=== PATIENT | female | born 1985 | race Caucasian/White ===

== ENCOUNTER 2024-11-18 13:38 | Inpatient (IN) | payer OTHER ==
[2024-11-18 13:34] VITALS: BP 142/80
[~2024-11-18 13:38] MED LIST: CALCIUM CARBONATE 500 MG CHEW PO PRN; IBUPROFEN800 MG PO; MAGNESIUM HYDROXIDE/AL HYDROX 30 ML CUP PO PRN; NON-ASPIRIN EX500 M1 PO; ONDANSETRON ODT8 MG SL; OXYCODONE HCL5 MG PO; PENICILLIN G POTASSIUM 5 MUNITS/110 ML PIGGYBACK IV ONE
[2024-11-18 13:40] LABS: HEMATOCRIT 39.4 % (35.0-50.0); MCH 30.1 (27-36); MCHC 32.9 g/dl (30-36); MCV 91.6 fl (81-99); RBC 4.3 M/ul (4.3-5.7); RDW 14.4 (10.5-15.0)
[2024-11-18] MEDS ORDERED: ROPIVACAINE 0.2% 200 ML BAG ONE (13:56)
[2024-11-18] MEDS ORDERED: fentaNYL citrate 100 MCG/2 ML VIAL ONE (13:56)
[2024-11-18 14:04] LABS: AMPHETAMINES, URINE NEGATIVE (NEGATIVE); BARBITURATES, URINE NEGATIVE (NEGATIVE); BENZODIAZEPINE, URINE NEGATIVE (NEGATIVE); BUPRENORPHINE, URINE NEGATIVE (NEGATIVE); CANNABINOID, URINE NEGATIVE (NEGATIVE); COCAINE, URINE NEGATIVE (NEGATIVE); ECSTASY, URINE NEGATIVE (NEGATIVE); FENTANYL, URINE NEGATIVE (NEGATIVE); METHADONE, URINE NEGATIVE (NEGATIVE); OPIATES, URINE NEGATIVE (NEGATIVE); OXYCODONE, URINE NEGATIVE (NEGATIVE); PHENCYCLIDINE, URINE NEGATIVE (NEGATIVE)
[2024-11-18 14:10] LABS: CREATININE, RANDOM URINE 70.87 mg/dL (NOT ESTABLISHED); PROTEIN/CREATININE RATIO 0.21 mg/mg (0.010-0.107)
[2024-11-18] MEDS ORDERED: LACTATED RINGER'S 1,000 ML IV SCH (14:15)
[2024-11-18 14:25] LABS: ABO O; RH POSITIVE
[2024-11-18 14:26] LABS: ANTIBODY SCREEN NEGATIVE
[2024-11-18] MEDS ORDERED: LACTATED RINGER'S 500 ML IV PRN (14:30)
[2024-11-18] MEDS ORDERED: LACTATED RINGER'S 2,000 ML IV ONE (14:30)
[2024-11-18] MEDS ORDERED: ROPIVACAINE 0.2% 200 ML BAG EPIDURAL SCH (14:30)
[2024-11-18] MEDS ORDERED: ePHEDrine sulfate 5 MG/ML SYRINGE IV PRN (14:30)
[2024-11-18 14:34] LABS: ALBUMIN 2.4 g/dL (3.4-5.0); ALBUMIN/GLOBULIN RATIO 0.67 (1.1-2.4); ANION GAP 16.7 (7-21); BILIRUBIN, TOTAL 0.6 ng/dL (0.2-1.0); BUN/CREATININE RATIO 8.95 (6.0-28.6); CALCIUM 8.5 mg/dL (8.5-10.1); CREATININE, SERUM 0.67 mg/dL (0.55-1.02); POTASSIUM 3.7 mmol/L (3.5-5.1)
[2024-11-18] MEDS ORDERED: PENICILLIN G POTASSIUM 5 MUNITS/110 ML PIGGYBACK IV ONE ×2 (17:00→17:15)
[2024-11-18] MEDS ORDERED: PENICILLIN G POTASSIUM 2.5 MUNITS in DEXTROSE 5% 100 ML IV ONE (17:30)
[2024-11-18] MEDS ORDERED: OXYTOCIN/DEXTROSE 5% 20 UNITS/100 ML BAG IV SCH (17:45)
[2024-11-18] MEDS ORDERED: IBUPROFEN 600 MG TAB PO PRN (18:00)
[2024-11-18] MEDS ORDERED: OXYTOCIN/0.9 % SODIUM CHLORIDE 500 ML IV SCH (18:00)
[2024-11-18] MEDS ORDERED: ACETAMINOPHEN 325 MG TAB PO PRN (18:00)
[2024-11-18] MEDS ORDERED: WITCH HAZEL/GLYCERIN 1 EA PAD TOP PRN (18:00)
[2024-11-18] MEDS ORDERED: CALCIUM CARBONATE 500 MG CHEW PO PRN (18:00)
[2024-11-18] MEDS ORDERED: MAGNESIUM HYDROXIDE 30 ML UDC PO PRN (18:00)
[2024-11-18] MEDS ORDERED: LIDOCAINE 2% VISCOUS 6 ML SYR TOP ONE ×2 (18:00)
[2024-11-18] MEDS ORDERED: BENZOCAINE 60 ML AEROSOL TOP PRN (18:00)
[2024-11-18] MEDS ORDERED: MAGNESIUM HYDROXIDE/AL HYDROX 30 ML CUP PO PRN (18:00)
[2024-11-18] MEDS ORDERED: HYDROCORTISONE ACETATE 25 MG SUPP PR PRN (18:00)
[2024-11-18] MEDS ORDERED: SENNOSIDES/DOCUSATE 1 EA TAB PO SCH (21:00)
== END 2024-11-20 11:10 | disposition home or self-care (01) | DRG 807 ==
LOC: FBCO 13:38 → FBC 13:39
PROVIDERS: ADMIT Advanced Practice Midwife; ATTEND Advanced Practice Midwife
PROC: 10E0XZZ Delivery of Products of Conception, External Approach (ICD-10-PCS; principal; 2024-11-18)
PROC: 0HQ9XZZ Repair Perineum Skin, External Approach (ICD-10-PCS; 2024-11-18)
DX: O99.824 Streptococcus B carrier state complicating childbirth (principal); Z37.0 Single live birth; Z3A.37 37 weeks gestation of pregnancy; Z92.21 Personal history of antineoplastic chemotherapy; Z85.72 Personal history of non-Hodgkin lymphomas; Z90.79 Acquired absence of other genital organ(s); Z90.721 Acquired absence of ovaries, unilateral; Z79.82 Long term (current) use of aspirin; O70.0 First degree perineal laceration during delivery; Z88.5 Allergy status to narcotic agent
CPT/HCPCS: 01960; 36415; 80053; 80307; 82570; 84156; 85027; 86850; 86900; 86901; A9270; J2540; J2590; J2795; J3010; J7121